=== PATIENT | male | born 1995 | race Caucasian/White ===

== ENCOUNTER 2018-12-11 04:46 | Emergency (ER) | payer OTHER ==
[~2018-12-11] VITALS: Ht 177.8 cm; Wt 117.0 kg
[~2018-12-11 04:46] MED LIST: AMPICILLIN250 MG PO; MOTRIN800 MG PO
[2018-12-11 04:51] VITALS: Ht 177.8 cm; Wt 117.0 kg
[2018-12-11 06:07] VITALS: BP 140/76
== END 2018-12-11 06:07 | disposition home or self-care (01) ==
LOC: ED 04:46
DX: J03.90 Acute tonsillitis, unspecified (principal)

== ENCOUNTER 2019-06-15 23:42 | Emergency (ER) | payer OTHER ==
[~2019-06-15] VITALS: Ht 177.8 cm; Wt 127.5 kg
[2019-06-15 23:48] VITALS: Ht 177.8 cm; Wt 127.5 kg
[2019-06-16 01:09] VITALS: BP 144/80
== END 2019-06-16 01:09 | disposition home or self-care (01) ==
LOC: ED 23:42
DX: M79.672 Pain in left foot (principal); R22.42 Localized swelling, mass and lump, left lower limb
CPT/HCPCS: J1885

== ENCOUNTER 2019-12-18 21:46 | Emergency (ER) | payer OTHER ==
[~2019-12-18] VITALS: Ht 177.8 cm; Wt 126.6 kg
[2019-12-18 22:05] VITALS: BP 154/81; Ht 177.8 cm; Wt 126.6 kg
== END 2019-12-19 00:16 | disposition home or self-care (01) ==
LOC: ED 21:46
DX: N50.811 Right testicular pain (principal); N50.812 Left testicular pain
CPT/HCPCS: 87491; 87591

== ENCOUNTER 2020-07-18 04:02 | Emergency (ER) | payer OTHER ==
[~2020-07-18] VITALS: Ht 177.8 cm; Wt 133.8 kg
[2020-07-18 04:56] VITALS: BP 168/90
== END 2020-07-18 04:56 | disposition home or self-care (01) ==
LOC: ED 04:02
DX: R51.9 Headache, unspecified (principal)

== ENCOUNTER 2020-08-06 00:30 | Emergency (ER) | payer OTHER ==
[~2020-08-06] VITALS: Ht 177.8 cm; Wt 136.1 kg
[2020-08-06 00:44] VITALS: Ht 177.8 cm; Wt 136.1 kg
[2020-08-06 02:56] VITALS: BP 142/91
== END 2020-08-06 02:56 | disposition home or self-care (01) ==
LOC: ED 00:30
DX: R51.9 Headache, unspecified (principal)
CPT/HCPCS: J3030

== ENCOUNTER 2020-10-28 20:40 | Emergency (ER) | payer OTHER, SELFPAY ==
[~2020-10-28] VITALS: Ht 177.8 cm; Wt 131.5 kg
[2020-10-28 20:43] VITALS: Ht 177.8 cm; Wt 131.5 kg
[2020-10-28 21:44] VITALS: BP 120/79
== END 2020-10-28 22:11 | disposition home or self-care (01) ==
LOC: ED 20:40
DX: U07.1 COVID-19 (principal)
CPT/HCPCS: U0003